=== PATIENT | male | born 1990 | race American Indian/Alaskan Native ===

== ENCOUNTER 2019-04-30 12:13 | Emergency (ER) | payer SELFPAY ==
--- NOTE | 2019-04-30 12:49 | Event Note ---
ED Screening Note Date of service: 04/30/19 Time: 12:48 ED Screening Note: 28 y o male presents with sob with cough x 3 days also cc of n/v, no hx of asthma This initial assessment/diagnostic orders/clinical plan/treatment(s) is/are subject to change based on patients health status, clinical progression and re- assessment by fellow clinical providers in the ED. Further treatment and workup at subsequent clinical providers discretion. Patient/guardian urged not to elope from the ED as their condition may be serious if not clinically assessed and managed. Initial orders include: cxr ac eval
[2019-04-30 12:50] VITALS: BP 157/106
--- NOTE | 2019-04-30 13:29 | XRay Report ---
CHEST 2 VIEWS INDICATION: cough,malaise. COMPARISON: None FINDINGS: Support devices: None. Heart: Within normal limits. Lungs/pleura: No acute air space or interstitial disease. No pneumothorax. Additional findings: None. IMPRESSION: No acute findings. Signer Name: Danny Loja Jr, MD Signed: 04/30/2019 1:25 PM Workstation Name: [id number]
--- NOTE | 2019-04-30 18:23 | Emergency Department Report ---
Minor Respiratory - HPI Chief Complaint: Upper Respiratory Infection Stated Complaint: SHARMAINE Time Seen by Provider: 04/30/19 18:12 Duration: 5 Days Minor Respiratory: Yes Able to Tolerate Fluids, Yes Cough, Yes Shortness of Breath, No Rhinorrhea, No Sore Throat, No Ear Pain, No Sick Contacts, No Hemoptysis, No Chest Pain, No Fever Other History: 28-year-old -Stateless male presents to emergency room for cough, body aches, chills and chest congestion for the last 4-5 days. Patient states his been taken TheraFlu and ibuprofen and drinking fluids. Patient last TheraFlu 8 AM last ibuprofen was 6 AM. Patient denies any fever. Patient states he has a dry cough. Patient states when he gets hot in the room and makes him harder to breathe. Patient denies any primary care provider. ED Review of Systems ROS: Stated complaint: SHARMAINE Other details as noted in HPI Comment: All other systems reviewed and negative ED Past Medical Hx - Past Medical History Previous Medical History?: No - Surgical History Past Surgical History?: No - Social History Smoking Status: Never Smoker Substance Use Type: None Minor Respiratory Exam - Exam General: Vital signs noted. No distress. Alert and acting appropriately. HEENT: Yes Moist Mucous Membranes, No Pharyngeal Erythema, No Pharyngeal Exudates, No Rhinorrhea, No Conjuctival Injection, No Frontal Tenderness, No Maxillary Tenderness Ear: Neither TM Bulge, Neither TM Erythema, Neither EAC Pain, Neither EAC Discharge Neck: Yes Supple, No Adenopathy Lungs: Yes Good Air Exchange, No Wheezes, No Ronchi, No Stridor, No Cough, No Labored Respirations, No Retractions, No Use of Accessory Muscles, No Other Abnormal Lung Sounds Heart: Yes Regular, No Murmur Abdomen: Yes Normal Bowel Sounds, No Tenderness, No Peritoneal Signs Skin: No Rash, No Edema Neurologic: Alert and oriented, no deficits. Musculoskeletal: Unremarkable. ED Course Vital Signs 04/30/19 12:49 Temperature 98.3 F Pulse Rate 80 Respiratory 18 Rate Blood Pressure 157/106 O2 Sat by Pulse 100 Oximetry ED Medical Decision Making - Radiology Data Radiology results: report reviewed Patient: RHEA OCAMPO Jamil#: [id number] : 1990 Acct:[id number] Age/Sex: 28 / M ADM Date: 04/30/19 Loc: ED Attending Dr: Ordering Physician: OLGA MASON Date of Service: 04/30/19 Procedure(s): XR chest routine 2V Accession Number(s): [id number] cc: OLGA MASON Fluoro Time In Minutes: CHEST 2 VIEWS INDICATION: cough,malaise. COMPARISON: None FINDINGS: Support devices: None. Heart: Within normal limits. Lungs/pleura: No acute air space or interstitial disease. No pneumothorax. Additional findings: None. IMPRESSION: No acute findings. Signer Name: Danny Vides Jr, MD Signed: 04/30/2019 1:25 PM Workstation Name: [id number] Transcribed By: TTR Dictated By: DANNY VIDES JR, MD Electronically Authenticated By: DANNY VIDES JR, MD Signed Date/Time: 04/30/19 132 DD/ 24 TD/TT: - Medical Decision Making 28-year-old -Stateless male presents to emergency room for cough, body aches, chills and chest congestion for the last 4-5 days. Patient states his been taken TheraFlu and ibuprofen and drinking fluids. Patient last TheraFlu 8 AM last ibuprofen was 6 AM. Patient denies any fever. Patient states he has a dry cough. Patient states when he gets hot in the room and makes him harder to breathe. Patient denies any primary care provider. Chest x-ray is negative. Patient diagnosis of viral syndrome and to continue with supportive care. Critical care attestation.: If time is entered above; I have spent that time in minutes in the direct care of this critically ill patient, excluding procedure time. ED Disposition Clinical Impression: Viral syndrome, Severely overweight Disposition: DC-01 TO HOME OR SELFCARE Is pt being admited?: No Does the pt Need Aspirin: No Condition: Stable Instructions: Viral Syndrome (ED), Obesity (ED) Additional Instructions: Chest x-ray is negative for any acute findings. Continue with supportive care Tylenol or ibuprofen Robitussin [id number]. Continue drinking plenty of fluids Referrals: PRIMARY CARE, [Primary Care Provider] - 3-5 Days
== END 2019-04-30 19:20 | disposition home or self-care (01) ==
LOC: ED 12:13
DX: B34.9 Viral infection, unspecified (principal)
CPT/HCPCS: 71046

== ENCOUNTER 2019-07-27 14:06 | Emergency (ER) | payer SELFPAY ==
[2019-07-27 14:55] VITALS: BP 151/90
--- NOTE | 2019-07-27 15:21 | Event Note ---
ED Screening Note Date of service: 07/27/19 Time: 15:17 ED Screening Note: This initial assessment/diagnostic orders/clinical plan/treatment(s) is/are subject to change based on patients health status, clinical progression and re- assessment by fellow clinical providers in the ED. Further treatment and workup at subsequent clinical providers discretion. Patient/guardian urged not to elope from the ED as their condition may be serious if not clinically assessed and managed. Initial orders include: 28yo M states that he has dizziness, blurred vision, CP, light headed, nausea, HARP and numbness on his L arm, legs and feet x 5 days.
--- NOTE | 2019-07-27 16:01 | Cat Scan Report ---
CT HEAD WITHOUT CONTRAST INDICATION / CLINICAL INFORMATION: MAIN: HARP 2 WEEKS. TECHNIQUE: Axial imaging performed from the skull apex through the skull base without the use of cont rast. Sagittal and coronal reformatted images. All CT scans at this location are performed using CT dose reduction for ALARA by means of automated exposure control. COMPARISON: None available. FINDINGS: CEREBRAL PARENCHYMA: No significant abnormality. No acute territorial infarct. HEMORRHAGE: None. EXTRA-AXIAL SPACES: Normal in size and morphology for the patient's age. VENTRICULAR SYSTEM: Normal in size and morphology for the patient's age. MIDLINE SHIFT OR HERNIATION: None. CEREBELLUM / BRAINSTEM: No significant abnormality. CALVARIUM: No significant abnormality. ORBITS: Normal as visualized. PARANASAL SINUSES / MASTOID AIR CELLS: There is focal mucosal thickening or secretions in the right f rontal sinus. Otherwise the sinuses are clear. SOFT TISSUES of HEAD: No significant abnormality. ADDITIONAL FINDINGS: None. IMPRESSION: No acute intracranial abnormality. Signer Name: Danny Loja Jr, MD Signed: 07/27/2019 3:57 PM Workstation Name: [id number]
[2019-07-27 16:30] LABS: Basophils # (Auto) 0.1 K/mm3 (0.0-0.1); Basophils % (Auto) 1.2 % (0.0-1.8); Eosinophils # (Auto) 0.2 K/mm3 (0.0-0.4); Eosinophils % (Auto) 2.1 % (0.0-4.3); Hematocrit 42.5 % (35.5-45.6); Hemoglobin 13.6 gm/dl (11.8-15.2); Lymphocytes # (Auto) 3.4 K/mm3 (1.2-5.4); Lymphocytes % (Auto) 37.7 % (13.4-35.0); Mean Corpuscular HGB Conc 32 % (32-34); Mean Corpuscular Volume 82 fl (84-94); Monocytes # (Auto) 0.5 K/mm3 (0.0-0.8); Monocytes % (Auto) 5.9 % (0.0-7.3); Platelet Count 379 K/mm3 (140-440); Red Blood Count 5.22 M/mm3 (3.65-5.03); Red Cell Distribution Width 15.6 % (13.2-15.2)
[2019-07-27 16:52] LABS: Alanine Aminotransferase 10 units/L (7-56); Albumin 4.2 g/dL (3.9-5); BUN/Creatinine Ratio 8; Blood Urea Nitrogen 8 mg/dL (9-20); Calcium 9.7 mg/dL (8.4-10.2); Hemolysis Index 5
--- NOTE | 2019-07-27 20:39 | Emergency Department Report ---
Chief Complaint: Headache Stated Complaint: DIZZY/HEADACHE/COUGHING Time Seen by Provider: 07/27/19 15:15 - HPI History of Present Illness: 28yo M states that he has dizziness, blurred vision, CP, light headed, nausea, HARP and numbness on his L arm, legs and feet x 5 days. - ROS Review of Systems: Alll reviewed and negative except for Neuro and Cardiac. Cardiac- see HPI Neuro- see HPI - Exam Vital Signs: Vital Signs 07/27/19 07/27/19 14:52 14:54 Temperature 97.9 F Pulse Rate 74 Respiratory 18 Rate Blood Pressure 151/90 O2 Sat by Pulse 98 Oximetry Physical Exam: General- WNL HEENNT-WNL Lungs-WNL Cardiac-WNL Abdomen-WNL Skin-WNL MS-WNL Neuro-WNL Psych-WNL MSE screening note: Focused history and physical exam performed. Due to findings the following was order Pt was explained that he is being MSE screened out. Pt was instructed to obtain rest and see PCP. Pt reports history of anxiety as well. He was informed that he can see ER if severe symptoms become severe or worse. Patient discussed with doctor:: TYLER TAM ED Medical Decision Making - Lab Data Result diagrams: 07/27/19 16:18 07/27/19 16:18 - Medical Decision Making Pt was explained that he is being MSE screened out. Pt was instructed to obtain rest and see PCP. Pt reports history of anxiety as well. He was informed that he can see ER if severe symptoms become severe or worse. ED Disposition for MSE Clinical Impression: Anxiety Disposition: Z-07 MED SCREENING EXAM-LEFT Is pt being admited?: No Does the pt Need Aspirin: No Condition: Stable Additional Instructions: Pt was explained that he is being MSE screened out. Pt was instructed to obtain rest and see PCP. Pt reports history of anxiety as well. He was informed that he can see ER if severe symptoms become severe or worse. Referrals: PRIMARY CARE, [Primary Care Provider] - 3-5 Days Time of Disposition: 20:39 Print Language: [place]
== END 2019-07-27 20:45 | disposition left against medical advice (07) ==
LOC: ED 14:06
DX: F41.9 Anxiety disorder, unspecified (principal); R42 Dizziness and giddiness; R07.9 Chest pain, unspecified; R51 Headache; R11.0 Nausea; R23.0 Cyanosis
CPT/HCPCS: 36415; 70450; 80053; 84484; 85025; 93005; 93010; 99283